=== PATIENT | female | born 1935 | race Caucasian/White ===

== ENCOUNTER 2016-06-30 01:43 | Inpatient (IN) | payer OTHER ==
[~2016-06-30] VITALS: Ht 160 cm; Wt 58.4 kg
[~2016-06-30 01:43] MED LIST: ADVAIR HFA120 INHALA IH; AMLODIPINE BESYL5 MG PO; AMOX TR-K CLV1 EAC4 PO; ASPIR 8181 M1 PO; AZITHROMYCIN500 M1 PO; CINNAMON500 MG PO; DUONEB 2.5-0.5 M3 ML AEROSOL; GABAPENTIN300 MG PO; LEVAQUIN500 MG PO; LISINOPRIL20 MG PO; LOVASTATIN20 MG PO; METOPROLOL PO; METOPROLOL SUCC25 MG PO; METOPROLOL TART25 MG PO; NICOTINE PATCH1 EAC2 TD; PRAVACHOL40 MG PO; PREDNISONE10 MG PO; PREDNISONE20 MG PO; PROAIR HFA8.5 GM IH; SPIRIVA RESPIMAT4 GM IH; SPIRIVA1 INHALATI IH; VENTOLIN HFA18 GM IH; VITAMIN E200 UNI2 PO; VITAMIN E400 UNI6 PO; ZESTRIL20 MG PO; ZITHROMAX250 MG PO
[2016-06-30 02:47] LABS: VENOUS PCO2 86 mm Hg (41-51)
[2016-06-30 02:48] LABS: CARBON DIOXIDE (BICARBONATE) > 40.0 MEQ/L (20-31); HEMATOCRIT 41.7 % (36.0-46.0); MCHC 31.7 G/DL (30.0-36.0); MCV 88.3 FL (83-99); PLATELET COUNT 199 K/uL (156-360); RBC DIS.WIDTH-CV 14.1 % (11.8-14.6); RBC DIS.WIDTH-SD 45.9 % (39-53); RED BLOOD COUNT 4.72 M/uL (3.80-5.20)
[2016-06-30 02:58] LABS: CHLORIDE 101 mEq/L (99-109); POTASSIUM 4.5 mEq/L (3.7-5.4); SODIUM 141 mEq/L (136-147)
[2016-06-30 02:59] LABS: GLUCOSE 120 mg/dL (70-99)
[2016-06-30 03:01] LABS: ANION GAP 7 MEQ/L (2-14)
[2016-06-30 03:03] LABS: GFR ESTIMATE (CALCULATED) > 59 mL/min/
[2016-06-30 03:04] LABS: UREA NITROGEN (BUN) 13 mg/dL (9-23)
[2016-06-30 03:12] LABS: TROP-I INTERPRETATION NEGATIVE; TROPONIN-I < 0.01 ng/mL (0.0-0.30)
[2016-06-30 06:17] VITALS: BP 135/65
[2016-06-30 07:30] VITALS: BP 126/70
[2016-06-30 09:13] LABS: HEMATOCRIT 41.5 % (36.0-46.0); MCH 27.8 PG (29.0-34.0); MCHC 31.6 G/DL (30.0-36.0); MCV 88.1 FL (83-99); MEAN PLAT.VOLUME 9.4 uM^3 (9.5-12.4); PLATELET COUNT 214 K/uL (156-360); RBC DIS.WIDTH-CV 14.1 % (11.8-14.6); RBC DIS.WIDTH-SD 45.3 % (39-53); RED BLOOD COUNT 4.71 M/uL (3.80-5.20); WHITE BLOOD COUNT 6.9 K/uL (4.1-10.2)
[2016-06-30 11:30] VITALS: BP 150/65
[2016-06-30 15:30] VITALS: BP 176/74
[2016-06-30 19:20] VITALS: BP 135/60
[2016-06-30 23:59] VITALS: BP 132/60
[2016-07-01 04:40] VITALS: BP 130/63
[2016-07-01 06:43] LABS: ALKALINE PHOSPHATASE 83 IU/L (3-129); ANION GAP 6 MEQ/L (2-14); CHLORIDE 100 MEQ/L (99-109); GFR ESTIMATE (CALCULATED) > 59 mL/min/; GLUCOSE 141 mg/dL (70-99); POTASSIUM 4.7 MEQ/L (3.7-5.4); SAMPLE HEMOLYSIS CHECK 0; SAMPLE ICTERIC CHECK 0; SAMPLE LIPEMIA CHECK 0; SODIUM 140 MEQ/L (136-147); TOTAL BILIRUBIN 0.3 MG/DL (0.0-1.0); UREA NITROGEN (BUN) 19 mg/dL (9-23)
[2016-07-01 07:24] VITALS: BP 110/71
[2016-07-01 08:20] VITALS: BP 152/65
[2016-07-01 15:31] VITALS: BP 117/55
[2016-07-01 20:12] VITALS: BP 130/60
[2016-07-02 00:07] VITALS: BP 135/63
[2016-07-02 05:08] VITALS: BP 152/63
[2016-07-02 07:34] VITALS: BP 145/64
[2016-07-02 10:12] LABS: MCH 27.9 PG (29.0-34.0); MCHC 31.7 G/DL (30.0-36.0); MCV 88.1 FL (83-99); MEAN PLAT.VOLUME 9.5 uM^3 (9.5-12.4); PLATELET COUNT 242 K/uL (156-360); RBC DIS.WIDTH-CV 14.6 % (11.8-14.6); RBC DIS.WIDTH-SD 47.3 % (39-53); RED BLOOD COUNT 4.77 M/uL (3.80-5.20); WHITE BLOOD COUNT 13.2 K/uL (4.1-10.2)
[2016-07-02 10:18] LABS: CHLORIDE 103 mEq/L (99-109); POTASSIUM 4.3 mEq/L (3.7-5.4); SODIUM 144 mEq/L (136-147)
[2016-07-02 10:20] LABS: GLUCOSE 100 mg/dL (70-99)
[2016-07-02 10:22] LABS: ANION GAP 11 MEQ/L (2-14)
[2016-07-02 10:24] LABS: GFR ESTIMATE (CALCULATED) > 59 mL/min/
[2016-07-02 10:28] LABS: UREA NITROGEN (BUN) 32 mg/dL (9-23)
[2016-07-02 11:30] VITALS: BP 144/64
[2016-07-02] MEDS ORDERED: AMOX TR-K CLV1 EAC4 PO (12:05)
[2016-07-02] MEDS ORDERED: PREDNISONE10 MG PO (12:05)
== END 2016-07-02 14:18 | disposition home health service (06) | DRG 190 ==
LOC: EME → EDBD 01:43 → EME 01:43 → 3EAST 04:09 → EDOF 04:09 → 3EAST 05:38
PROVIDERS: Emergency Medicine; Internal Medicine; Physician Assistant
DX: J44.1 Chronic obstructive pulmonary disease with (acute) exacerbation (principal); J96.21 Acute and chronic respiratory failure with hypoxia; J96.22 Acute and chronic respiratory failure with hypercapnia; I10 Essential (primary) hypertension; G43.909 Migraine, unspecified, not intractable, without status migrainosus; E78.5 Hyperlipidemia, unspecified; M19.90 Unspecified osteoarthritis, unspecified site; E78.00 Pure hypercholesterolemia, unspecified; Z87.891 Personal history of nicotine dependence; Z99.81 Dependence on supplemental oxygen; Z88.5 Allergy status to narcotic agent; Z88.2 Allergy status to sulfonamides; Z88.6 Allergy status to analgesic agent; Z79.82 Long term (current) use of aspirin; Z79.52 Long term (current) use of systemic steroids; Z91.128 Patient's intentional underdosing of medication regimen for other reason; Z82.3 Family history of stroke; Z83.3 Family history of diabetes mellitus
CPT/HCPCS: 71020; 80048; 80053; 82803; 83605; 83880; 84484; 85027; 87040; 87070; 87205; 93005; 94640; 94640 76; 94760; 94799; 99202; 99281; 99285; J1100; J1644; J1956; J2930; J7512; J7644

== ENCOUNTER 2016-11-12 16:08 | Inpatient (IN) | payer OTHER ==
[~2016-11-12] VITALS: Ht 160 cm; Wt 58.0 kg
[2016-11-12 17:31] LABS: EOSINOPHIL COUNT 0.5 K/uL (0-0.3); HEMATOCRIT 41.7 % (36.0-46.0); IMMATURE GRANULOCYTE (%) 0.3 % (0.0-0.7); INSTRUMENT ABS NEUTROPHIL CT 4.4 K/uL; LYMPHOCYTE COUNT 1.8 K/uL (1.0-2.8); MCH 27.2 PG (29.0-34.0); MCHC 31.7 G/DL (30.0-36.0); MEAN PLAT.VOLUME 9.6 uM^3 (9.5-12.4); MONOCYTE (%) 8.1 % (3-12); MONOCYTE COUNT 0.6 K/uL (0-0.8); NEUTROPHIL (%) 59.7 % (45-76); NEUTROPHIL COUNT 4.4 K/uL (1.8-6.4); PLATELET COUNT 195 K/uL (156-360); RBC DIS.WIDTH-CV 13.2 % (11.8-14.6); RBC DIS.WIDTH-SD 40.9 % (39-53); RED BLOOD COUNT 4.85 M/uL (3.80-5.20); WHITE BLOOD COUNT 7.4 K/uL (4.1-10.2)
[2016-11-12 17:44] LABS: CHLORIDE 103 mEq/L (99-109); SODIUM 141 mEq/L (136-147)
[2016-11-12 17:46] LABS: GLUCOSE 90 mg/dL (70-99)
[2016-11-12 17:47] LABS: ANION GAP 6 MEQ/L (2-14)
[2016-11-12 17:48] LABS: TOTAL BILIRUBIN 0.3 mg/dL (0.0-1.0)
[2016-11-12 17:50] LABS: ALKALINE PHOSPHATASE 96 IU/L (3-129); GFR ESTIMATE (CALCULATED) > 59 mL/min/
[2016-11-12 17:51] LABS: UREA NITROGEN (BUN) 18 mg/dL (9-23)
[2016-11-12 17:54] LABS: TROP-I INTERPRETATION NEGATIVE; TROPONIN-I < 0.01 ng/mL (0.0-0.30)
[2016-11-12 19:02] LABS: ADD MIUA? YES; BILIRUBIN NEGATIVE; BLOOD SMALL; COLOR STRAW ((YELLOW)); GLUCOSE (STRIP) NEGATIVE; KETONES 5; LEUKOCYTES NEGATIVE; NITRITE NEGATIVE; PROTEIN (STRIP) NEGATIVE; SPECIFIC GRAVITY 1.011 (1.000-1.030); UROBILINOGEN 0.2 MG/DL (0.2-1.0)
[2016-11-12 19:06] LABS: BACTERIA NONE SEEN /HPF; EPITHELIAL CELLS NONE SEEN /HPF; MUCUS TRACE /LPF; RED BLOOD CELLS 15-20 /HPF (0-5); UCUL ADDED? NO; WHITE BLOOD CELLS 0-5 /HPF (0-5)
[2016-11-12 21:28] VITALS: BP 157/68
[2016-11-13 00:01] VITALS: BP 149/56
[2016-11-13 03:52] VITALS: BP 134/68
[2016-11-13 06:53] LABS: HEMATOCRIT 40.7 % (36.0-46.0); MCH 28.5 PG (29.0-34.0); MCHC 32.7 G/DL (30.0-36.0); MCV 87.2 FL (83-99); MEAN PLAT.VOLUME 9.6 uM^3 (9.5-12.4); PLATELET COUNT 197 K/uL (156-360); RBC DIS.WIDTH-CV 13.5 % (11.8-14.6); RBC DIS.WIDTH-SD 42.7 % (39-53); RED BLOOD COUNT 4.67 M/uL (3.80-5.20); WHITE BLOOD COUNT 7.4 K/uL (4.1-10.2)
[2016-11-13 07:20] LABS: ANION GAP 6 MEQ/L (2-14); CHLORIDE 100 MEQ/L (99-109); GFR ESTIMATE (CALCULATED) > 59 mL/min/; GLUCOSE 121 mg/dL (70-99); POTASSIUM 4.5 MEQ/L (3.7-5.4); SAMPLE HEMOLYSIS CHECK 0; SAMPLE ICTERIC CHECK 0; SAMPLE LIPEMIA CHECK 0; SODIUM 140 MEQ/L (136-147); UREA NITROGEN (BUN) 18 mg/dL (9-23)
[2016-11-13 07:50] VITALS: BP 125/71
[2016-11-13] MEDS ORDERED: PROAIR HFA8.5 GM IH (09:43)
[2016-11-13] MEDS ORDERED: SPIRIVA RESPIMAT4 GM IH (09:43)
[2016-11-13 11:45] VITALS: BP 128/52
[2016-11-13 15:47] VITALS: BP 151/67
[2016-11-13 16:21] LABS: INFLUENZA A VIRAL ANTIGEN NEGATIVE; INFLUENZA B VIRAL ANTIGEN NEGATIVE
[2016-11-13 19:38] VITALS: BP 153/70
[2016-11-14 00:06] VITALS: BP 130/60
[2016-11-14 03:11] VITALS: BP 145/75
[2016-11-14 07:07] LABS: EOSINOPHIL (%) 0 % (0-5); HEMATOCRIT 41.1 % (36.0-46.0); IMMATURE GRANULOCYTE (%) 0.4 % (0.0-0.7); INSTRUMENT ABS NEUTROPHIL CT 8.2 K/uL; LYMPHOCYTE COUNT 1.1 K/uL (1.0-2.8); MCH 27.6 PG (29.0-34.0); MCHC 31.6 G/DL (30.0-36.0); MCV 87.3 FL (83-99); MEAN PLAT.VOLUME 9.6 uM^3 (9.5-12.4); MONOCYTE (%) 5.3 % (3-12); MONOCYTE COUNT 0.5 K/uL (0-0.8); NEUTROPHIL (%) 82.8 % (45-76); NEUTROPHIL COUNT 8.2 K/uL (1.8-6.4); PLATELET COUNT 221 K/uL (156-360); RBC DIS.WIDTH-CV 13.4 % (11.8-14.6); RBC DIS.WIDTH-SD 42.6 % (39-53); RED BLOOD COUNT 4.71 M/uL (3.80-5.20); WHITE BLOOD COUNT 9.9 K/uL (4.1-10.2)
[2016-11-14 07:28] VITALS: BP 141/66
[2016-11-14 07:33] LABS: ALKALINE PHOSPHATASE 89 IU/L (3-129); ANION GAP 7 MEQ/L (2-14); CHLORIDE 102 MEQ/L (99-109); GFR ESTIMATE (CALCULATED) > 59 mL/min/; GLUCOSE 128 mg/dL (70-99); SAMPLE HEMOLYSIS CHECK 0; SAMPLE ICTERIC CHECK 0; SAMPLE LIPEMIA CHECK 0; SODIUM 142 MEQ/L (136-147); TOTAL BILIRUBIN 0.4 MG/DL (0.0-1.0); UREA NITROGEN (BUN) 21 mg/dL (9-23)
[2016-11-14 08:21] LABS: ADD MIUA? YES; BILIRUBIN NEGATIVE; BLOOD LARGE; COLOR YELLOW ((YELLOW)); GLUCOSE (STRIP) NEGATIVE; KETONES NEGATIVE; LEUKOCYTES NEGATIVE; NITRITE NEGATIVE; PROTEIN (STRIP) 30; UROBILINOGEN 0.2 MG/DL (0.2-1.0)
[2016-11-14 08:27] LABS: BACTERIA NONE SEEN /HPF; EPITHELIAL CELLS NONE SEEN /HPF; MUCUS NONE SEEN /LPF; RED BLOOD CELLS TNTC /HPF (0-5); WHITE BLOOD CELLS 0-5 /HPF (0-5)
[2016-11-14 11:26] VITALS: BP 126/46
[2016-11-14 16:01] VITALS: BP 131/62
[2016-11-14 23:45] VITALS: BP 131/63
[2016-11-15 06:40] VITALS: BP 141/63
[2016-11-15] MEDS ORDERED: PREDNISONE10 MG PO (10:44)
[2016-11-15] MEDS ORDERED: ADVAIR HFA120 INHALA IH (10:44)
[2016-11-15] MEDS ORDERED: AMOX TR-K CLV1 EAC4 PO (10:44)
== END 2016-11-15 10:46 | disposition home health service (06) | DRG 191 ==
LOC: EME 16:08 → 2EAST 19:36 → EDOF 19:36 → ENRESERV 19:37 → 2EAST 21:18
PROVIDERS: Emergency Medicine; Hospitalist
DX: J44.1 Chronic obstructive pulmonary disease with (acute) exacerbation (principal); Z99.81 Dependence on supplemental oxygen; J96.12 Chronic respiratory failure with hypercapnia; I10 Essential (primary) hypertension; E78.5 Hyperlipidemia, unspecified; R91.8 Other nonspecific abnormal finding of lung field; Z87.891 Personal history of nicotine dependence; Z83.3 Family history of diabetes mellitus; Z87.442 Personal history of urinary calculi
CPT/HCPCS: 71020; 71275; 80048; 80053; 81003; 83605; 83735; 83880; 84484; 85025; 85027; 87040; 87502; 90686; 93005; 94010; 94640; 94640 76; 94799; 99281; 99285; J0456; J0696; J1644; J2920; J7050; J7512